=== PATIENT | male | born 1985 | race Caucasian/White ===

== ENCOUNTER 2021-02-27 08:04 | Emergency (ER) | payer BC, SELFPAY ==
[2021-02-27 08:12] VITALS: BP 135/88; PULSE 110; RESP 16; TEMP 37.2; O2SAT 100
--- NOTE | 2021-02-27 08:21 | ED.URI ---
HPI - URI/Sore Throat General Chief Complaint: Upper Respiratory Infection Stated Complaint: sinus head ear pressure scratchy throat Time Seen by Provider: 02/27/21 08:21 Source: patient and family Mode of arrival: ambulatory Limitations: no limitations History of Present Illness HPI Narrative: Patient presents with a 3-day history of nasal congestion runny nose scratchy throat. 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 Patient is taking ibuprofen [id number] for body aches and fever. Patient denies any shortness of breath no chest pain no trouble swallowing no drooling patient is COVID-19 vaccinated. MD elicited complaint: sore throat and nasal congestion Related Data Allergies Allergy/AdvReac Type Severity Reaction Status Date / Time No Known Allergies Allergy Verified 02/27/21 08:19 Review of Systems Review of Systems: CONSTITUTIONAL: Denies chills, or sweats. Reports fever and generalized body aches EYES: Denies visual changes, redness, or discharge. ENT: Denies otalgia. Reports nasal congestion runny nose and sore throat CARDIOVASCULAR: Denies chest pain, palpitations, or edema. RESPIRATORY: Denies dyspnea. Reports occasional cough GASTROINTESTINAL: Denies abdominal pain, nausea, vomiting, or diarrhea. GENITOURINARY: Denies dysuria or hematuria. SKIN: Denies rash or itching. MUSCULOSKELETAL: Denies back pain, joint pain, or myalgia. Reports generalized body aches NEUROLOGIC: Denies headache, numbness, or weakness. PSYCHIATRIC: Denies anxiety or depression. PMFSH Comments At time of signature, agree with nursing past medical, surgical, social and family history. There is no relevant family history pertinent to the presenting complaint Exam Narrative: The patient is a well-developed, well-nourished in no acute distress. SKIN: Skin is warm and dry without erythema, swelling or exudate. There is good turgor. No tenting. HEAD: Atraumatic. Normocephalic. No temporal or scalp tenderness. EYES: Moist and bright. Sclera and conjunctivae normal. No discharge. PERRLA. Extraocular motions intact. Gross visual acuity intact. EARS: Pinna is normal shape and contour. Clear external auditory canals. TM pearly raines with good cone of light, no erythema or suppuration. Bilateral cerumen noted no gross hearing deficit. NOSE: pink, moist mucosa with good air movement. Clear rhinorrhea without nasal flaring. Septum midline. Mouth: moist mucous membranes. THROAT; mild erythema noted to posterior oropharynx with moderate postnasal drainage. Without exudate or ulceration.. Uvula midline. Normal movement of soft palate. NECK: Supple and nontender with full range of motion without discomfort. No meningeal signs. LUNGS: Equal and bilateral breath sounds without wheezes, rales or rhonchi. CHEST: The chest wall is without retractions or use of accessory muscles. HEART: Has a regular rate and rhythm without murmur, gallops, click or rub. ABDOMEN: Soft, nontender with positive active bowel sounds. No rebound tenderness. EXTREMITIES: Without cyanosis, clubbing or edema. Equal 2+ distal pulses and 2 second capillary refill noted. NEUROLOGIC: alert, active, . The patient moves all extremities with normal muscle strength. Normal muscle tone is noted. Normal coordination is noted. NO focal neurological findings noted. Course Course Level of Care: Express Care Visit Vital Signs Vital signs: Vital Signs Temperature 37.2 C 02/27/21 08:12 Pulse Rate 110 H 02/27/21 08:12 Respiratory Rate 16 02/27/21 08:12 Blood Pressure 135/88 02/27/21 08:12 Pulse Oximetry 100 02/27/21 08:12 Temperature 37.2 C 02/27/21 08:12 Pulse Rate 110 H 02/27/21 08:12 Respiratory Rate 16 02/27/21 08:12 Blood Pressure 135/88 02/27/21 08:12 Pulse Oximetry 100 02/27/21 08:12 My blood pressure please CHARLES schedule a followup visit
[2021-02-28 20:09] LABS: SARS-CoV-2 RNA PCR Negative
== END 2021-02-27 08:44 | disposition home or self-care (01) ==
PROVIDERS: Emergency Provider Nurse Practitioner Family; PCP Hospitalist
DX: J06.9 Acute upper respiratory infection, unspecified (principal); Z20.822 Contact with and (suspected) exposure to COVID-19
CPT/HCPCS: 99213; C9803; G0463; U0003; U0005

== ENCOUNTER 2022-05-26 15:08 | Emergency (ER) | payer BC, SELFPAY ==
--- NOTE | 2022-05-26 15:23 | ED.ABDPAIN ---
HPI - Abdominal Pain General Stated Complaint: Abdominal Pain Time Seen by Provider: 05/26/22 15:23 Source: patient and RN notes reviewed Mode of arrival: ambulatory Limitations: no limitations History of Present Illness HPI narrative: 36 y/o male presented for c/o RLQ abdominal pain, onset this morning. States after having BM he felt bloated with sharp gas pains which have persisted throughout the day. Has taken a hot shower and used the heating pad and did stretching to help relieve the pain. Also took Gas-X. States it is annoying, cramping, and aching. Last meal 1230, states he ate light lunch. Denies associated n/v/d, constipation, urinary complaints, fever or chills. Pain does not radiate to groin. Denies abdominal surgeries. Related Data Home Medications Medication Instructions Recorded Confirmed No Home Medications 05/26/22 05/26/22 Allergies Allergy/AdvReac Type Severity Reaction Status Date / Time No Known Allergies Allergy Verified 05/26/22 15:36 Review of Systems Review of Systems: CONSTITUTIONAL: Denies body aches, fever, chills ENT: Denies rhinorrhea, congestion CARDIOVASCULAR: Denies chest pain, palpitations, or edema. RESPIRATORY: Denies cough or dyspnea. GASTROINTESTINAL: Endorses abdominal pain, Denies nausea, vomiting, diarrhea, hematochezia, melena GENITOURINARY: Denies dysuria, hematuria, or CVA tenderness. SKIN: Denies rash, itching, or wounds. MUSCULOSKELETAL: Denies back pain, joint pain, or myalgia. NEUROLOGIC: Denies headache, numbness, tingling, or weakness. All systems reviewed & are unremarkable except as noted in HPI and below [facility] Past Medical History Medical History (Updated 05/26/22 @ 15:46 by Emily Rowley, BRANDY) No pertinent past medical history Comments At time of signature, I have reviewed and agree with nursing past medical, surgical, social and family history unless otherwise noted. Please see nursing chart for further information. There is no relevant family history pertinent to the presenting complaint Exam Narrative: GENERAL: Well-appearing, and in no acute distress. EYES: EOMI. Conjunctivae normal. ENT: Mucous membranes pink and moist. CHEST: Clear to auscultation. HEART: Regular rate and rhythm. No murmur appreciated. Normal peripheral pulses. ABDOMEN: abd soft, nondistended, normal active bowel sounds. Tender abdomen RLQ; No guarding, rebound tenderness, asymmetry EXTREMITIES: Normal range of motion. No edema. SKIN: Warm, dry, no rash. Capillary refill normal. Normal skin turgor. NEURO: Alert and oriented x3. PSYCH: Normal affect. Course Course Emergency Course: Patient is aware of diagnosis, understands and agrees to treatment plan. Anticipatory guidance given. Portions of this record may have been created with voice recognition software Level of Care: Express Care Visit Transfer Transfered to: [facility] Transportation: Other ( Private vehicle) Transfer rationale: Pt is agreeable to transfer. Requests transfer to [facility] via private vehicle. Risks of transportation reviewed with pt including injury, worsening of condition and . v/u. Report called to hospital, spoke with Lilli GUERRERO, Dr Brooks accepting physician. Pt is in stable condition at time of transfer. Advised to remain NPO and go directly to the hospital. MDM - Abdominal Pain MDM Narrative Medical decision making narrative: Patient presents with complaint of right lower quadrant abdominal pain. Advised ER transfer. Differential Diagnosis Differential diagnosis: Likely abdominal pain, acute appendicitis, calculus of kidney, constipation, diverticulitis, gastroenteritis and small bowel obstruction Discharge Plan Discharge Clinical Impression: Abdominal pain, right lower quadrant Patient Disposition: Acute Care Hospital Condition: Stable Prescriptions: No Action fluticasone propionate [Flonase Allergy Relief] 50 mc
[2022-05-26 15:24] VITALS: BP 118/75; PULSE 100; RESP 20; TEMP 37; O2SAT 100
== END 2022-05-26 15:42 | disposition short-term general hospital (02) ==
PROVIDERS: Emergency Provider Nurse Practitioner Family; PCP Hospitalist
DX: R10.31 Right lower quadrant pain (principal)
CPT/HCPCS: 99212; G0463